=== PATIENT | male | born 1990 | race Caucasian/White ===

== ENCOUNTER 2017-10-14 15:25 | Outpatient (CLI) | payer OTHER | END 2017-10-24 | disposition home or self-care (01) | LOC: PCVCIMAG 15:25 | DX: R07.9 Chest pain, unspecified (principal); R06.00 Dyspnea, unspecified; R00.2 Palpitations | CPT/HCPCS: 93325; 93351 ==

== ENCOUNTER 2020-08-01 19:45 | Emergency (ER) | payer OTHER ==
[~2020-08-01] VITALS: Ht 182.9 cm; Wt 63.6 kg
--- NOTE | 2020-08-01 20:03 | EKG ---
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
[2020-08-01 20:09] LABS: BASO % 0 % (0-3); EOS % 0 % (0-3); HEMATOCRIT 45.9 % (39.0-53.0); HEMOGLOBIN 15.3 g/dL (13.0-17.5); LYMPH # 1.8 x10^3/uL (1.0-4.8); LYMPH % 29 % (24-48); MEAN CORPUSCULAR HEMOGLOBIN 29 pg (25-35); MEAN CORPUSCULAR HGB CONC 33 g/dL (31-37); MEAN CORPUSCULAR VOLUME 86 fL (79-100); MONO # 0.6 x10^3/uL (0.0-1.1); MONO % 9 % (0-9); NEUT # 3.9 x10^3/uL (1.8-7.7); NEUT % 62 % (31-73); PLATELET COUNT 80 x10^3/uL (140-400); RED BLOOD COUNT 5.32 x10^6/uL (4.30-5.70); WHITE BLOOD COUNT 6.3 x10^3/uL (4.0-11.0)
--- NOTE | 2020-08-01 20:13 | PHYS DOC ---
General Adult HPI: HPI: 30-year-old male with history of hypertension, anxiety, bradycardia, thrombocytopenia, who presents for evaluation of altered mentation and headache. The patient reports gradual onset global headache that began earlier this morning, around 9 AM. He took his first dose of lisinopril this morning as well, newly started for hypertension. Per EMS, the patient was noted to have left upper extremity weakness. The patient also reports feeling generally unwell, and has difficulty thinking. He took one Xanax prior to arrival thinking his presentation may have been anxiety induced. Review of Systems: Review of Systems: Gen: No fever, chills. Eyes: No blurred vision, diplopia. ENT: No nasal congestion, sore throat. CV: No CP, palpitations. Resp. No SOB, cough. GI: No abd pain, N/V. : No dysuria, hematuria. Neuro: Reports SUE, dizziness, weakness. MSK: No myalgia, arthralgia, back pain. Skin: No acute rash or lesion. Remainder of systems reviewed and negative unless otherwise specified. Heart Score: Risk Factors: Risk Factors: DM, Current or recent (<one month) smoker, HTN, HLP, family history of CAD, obesity. Risk Scores: Score 0 - 3: 2.5% MACE over next 6 weeks - Discharge Home Score 4 - 6: 20.3% MACE over next 6 weeks - Admit for Clinical Observation Score 7 - 10: 72.7% MACE over next 6 weeks - Early Invasive Strategies Physical Exam: PE: Gen: NAD. Well nourished. Head: NC/AT. Eyes: No scleral icterus. No conjunctival injection. PERRL. Mild bilateral proptosis. ENT: MMM. Posterior OP clear. Neck: Supple. NT. No meningismus. CV: RRR. Peripheral pulses intact. Resp: CTAB. Abd: Soft. NT. ND. MSK: No peripheral cyanosis. No edema. Neuro: A&Ox3. Sensation grossly intact throughout. Mild left upper extremity drift. No gross dysmetria. No aphasia or dysarthria. No visual field cut. No facial asymmetry. NIHSS of 1. Skin. Warm. Dry. Psych: Anxious appearing. Current Patient Data: Labs: Laboratory Tests Test 08/01/20 20:00 White Blood Count 6.3 x10^3/uL (4.0-11.0) Red Blood Count 5.32 x10^6/uL (4.30-5.70) Hemoglobin 15.3 g/dL (13.0-17.5) Hematocrit 45.9 % (39.0-53.0) Mean Corpuscular Volume 86 fL (79-100) Mean Corpuscular Hemoglobin 29 pg (25-35) Mean Corpuscular Hemoglobin Concent 33 g/dL (31-37) Red Cell Distribution Width 13.0 % (11.5-14.5) Platelet Count 80 x10^3/uL (140-400) Neutrophils (%) (Auto) 62 % (31-73) Lymphocytes (%) (Auto) 29 % (24-48) Monocytes (%) (Auto) 9 % (0-9) Eosinophils (%) (Auto) 0 % (0-3) Basophils (%) (Auto) 0 % (0-3) Neutrophils # (Auto) 3.9 x10^3/uL (1.8-7.7) Lymphocytes # (Auto) 1.8 x10^3/uL (1.0-4.8) Monocytes # (Auto) 0.6 x10^3/uL (0.0-1.1) Eosinophils # (Auto) 0.0 x10^3/uL (0.0-0.7) Basophils # (Auto) 0.0 x10^3/uL (0.0-0.2) Platelet Estimate Decreased (ADEQUATE) Large Platelets Present Prothrombin Time 13.9 SEC (11.7-14.0) Prothromb Time International Ratio 1.1 (0.8-1.1) Activated Partial Thromboplast Time 27 SEC (24-38) Sodium Level 139 mmol/L (136-145) Chloride Level 102 mmol/L (98-107) Carbon Dioxide Level 26 mmol/L (21-32) Anion Gap 11 (6-14) Blood Urea Nitrogen 14 mg/dL (8-26) Estimated GFR (Cockcroft-Gault) 87.2 BUN/Creatinine Ratio 14 (6-20) Glucose Level 108 mg/dL (70-99) Calcium Level 8.9 mg/dL (8.5-10.1) Total Bilirubin 0.5 mg/dL (0.2-1.0) Aspartate Amino Transf (AST/SGOT) 16 U/L (15-37) Alkaline Phosphatase 53 U/L (46-116) Troponin I Quantitative < 0.017 ng/mL (0.000-0.055) Total Protein 7.8 g/dL (6.4-8.2) Albumin 4.1 g/dL (3.4-5.0) Albumin/Globulin Ratio 1.1 (1.0-1.7) Ethyl Alcohol Level < 10 mg/dL (0-10) EKG: EKG: [] Radiology/Procedures: Radiology/Procedures: Exam: CT head. CTA head and neck INDICATION: Headache, left upper extremity drift TECHNIQUE: Sequential axial images through the head were obtained without the administration of IV contrast. Sequential axial images through the head and neck were obtained following the administration of 75 mL of Isovue-370. 3-D reformatted images were reconstructed from the axial data and reviewed. Comparisons: None FINDINGS: Head: No focal parenchymal lesion or hemorrhage is identified. There is no midline shift or sulcal effacement. No acute vascular territory infarction is identified. Rivas-white distinction is preserved. The ventricular system is within normal limits without compression hydrocephalus. The basal cisterns are well maintained. The visualized portions of the paranasal sinuses and mastoid air cells are well- pneumatized. No acute fractures. CTA NECK: Right common carotid artery is patent without evidence of stenosis, occlusion or aneurysm. Cervical segment of the right internal carotid artery is patent without evidence of stenosis, occlusion or aneurysm. Left common carotid artery is patent without evidence of stenosis, occlusion or aneurysm. Cervical segment of the left internal carotid artery is patent without evidence of stenosis, occlusion or aneurysm. Right vertebral artery is patent basal confluence without evidence of stenosis, occlusion or aneurysm. Left vertebral artery is patent to basilar confluence without evidence of stenosis, occlusion or aneurysm. Visualized paraspinal soft tissues are unremarkable. CTA HEAD: Intracranial segments of the right internal carotid artery are patent without evidence of stenosis, occlusion or aneurysm. Right MCA is patent. Right NINA is patent. Intracranial segments of the left internal carotid artery are patent without evidence of stenosis, occlusion or aneurysm. Left MCA is patent. Left NINA is patent. Basilar artery is patent without evidence of stenosis, occlusion or aneurysm. 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 IMPRESSION: 1. No acute intracranial abnormality. 2. Patent intracranial and cervical arterial vasculature without evidence of stenosis, occlusion or aneurysm. Course & Med Decision Making: Course & Med Decision Making Pertinent Labs and Imaging studies reviewed. (See chart for details) In summary, 30-year-old male who presents for evaluation of headache, left upper extremity drift and elevated blood pressure. Hemodynamically stable. Physical exam is notable for subtle left upper extremity drift without significant fine motor weakness. No other sequelae of stroke noted. No meningeal signs. Lab work is largely unremarkable. Underwent CTA head and neck, negative for large vessel occlusion or significant cerebrovascular disease. Patient presented well outside the TPA window. Received migraine cocktail with improvement in SUE and left arm weakness. I do suspect complicated migraine in this young adult patient without significant risk factors for stroke. After a shared decision making discussion re: admission vs. discharge, patient has opted for discharge which I feel would be a reasonable disposition. Findings also discussed with spouse at bedside. Will DC with Rx fiorcet. Outpatient neurology F/U. Return precautions given. Daily Disclaimer: Daily Disclaimer: This electronic medical record was generated, in whole or in part, using a voice recognition dictation system. Departure Departure Impression: Primary Impression: Complicated migraine Disposition: 01 DC HOME SELF CARE/HOMELESS Condition: STABLE Referrals: ALDEN STEPHEN DO (PCP) DEREK GARCIA MD Patient Instructions: Migraine Headache, [id number] Additional Instructions: Please follow up with Dr. Hernandez of neurology. You may also follow up with the neurologist of your choice. Return to the ED if you develop new or worsening symptoms. Scripts Butalb/Acetaminophen/Caffeine ([id number] [id number]) 1 Each Tablet 1 EACH PO Q8HRS PRN for HEADACHE, #15 TAB Prov: NOVA ROCHA DO 08/01/20 NOVA ROCHA DO Aug 01, 2020 20:13
[2020-08-01 20:19] LABS: PROTHROMBIN TIME PATIENT 13.9 SEC (11.7-14.0)
[2020-08-01] MEDS ORDERED: LISI20TA18 PO (20:22)
[2020-08-01 20:29] LABS: CALCIUM 8.9 mg/dL (8.5-10.1); GFR 87.2; POTASSIUM 3.4 mmol/L (3.5-5.1)
[2020-08-01] MEDS ORDERED: diphenhydrAMINE 50 MG/ML VIAL IVP ONE (20:30)
[2020-08-01] MEDS ORDERED: CONTRAST GIVEN. MC PRN (20:30)
[2020-08-01] MEDS ORDERED: IV NORMAL SALINE 1000ML BAG 1,000 ML IV ONE (20:30)
[2020-08-01] MEDS ORDERED: IOHEXOL 350 MG/ML 100 ML VIAL. IV ONE (20:30)
[2020-08-01] MEDS ORDERED: METOCLOPRAMIDE HCL 10 MG/2 ML VIAL. IVP ONE (20:30)
[2020-08-01 20:34] LABS: ALBUMIN 4.1 g/dL (3.4-5.0); ALBUMIN/GLOBULIN RATIO 1.1 (1.0-1.7); MAGNESIUM 2.2 mg/dL (1.8-2.4); TOTAL BILIRUBIN 0.5 mg/dL (0.2-1.0); TOTAL PROTEIN 7.8 g/dL (6.4-8.2)
[2020-08-01 20:35] LABS: PLT ESTIMATE DECREASED (ADEQUATE)
--- NOTE | 2020-08-01 21:20 | RAD ---
Exam: CT head. CTA head and neck INDICATION: Headache, left upper extremity drift TECHNIQUE: Sequential axial images through the head were obtained without the administration of IV co ntrast. Sequential axial images through the head and neck were obtained following the administration of 75 mL of Isovue-370. 3-D reformatted images were reconstructed from the axial data and reviewed. Comparisons: None FINDINGS: Head: No focal parenchymal lesion or hemorrhage is identified. There is no midline shift or sulcal effaceme nt. No acute vascular territory infarction is identified. Rivas-white distinction is preserved. The ventricular system is within normal limits without compression hydrocephalus. The basal cisterns are well maintained. The visualized portions of the paranasal sinuses and mastoid air cells are well-pneumatized. No acute fractures. CTA NECK: Right common carotid artery is patent without evidence of stenosis, occlusion or aneurysm. Cervical s egment of the right internal carotid artery is patent without evidence of stenosis, occlusion or aneu rysm. Left common carotid artery is patent without evidence of stenosis, occlusion or aneurysm. Cervical se gment of the left internal carotid artery is patent without evidence of stenosis, occlusion or aneury sm. Right vertebral artery is patent basal confluence without evidence of stenosis, occlusion or aneurysm . Left vertebral artery is patent to basilar confluence without evidence of stenosis, occlusion or aneu rysm. Visualized paraspinal soft tissues are unremarkable. CTA HEAD: Intracranial segments of the right internal carotid artery are patent without evidence of stenosis, o cclusion or aneurysm. Right MCA is patent. Right NINA is patent. Intracranial segments of the left internal carotid artery are patent without evidence of stenosis, oc clusion or aneurysm. Left MCA is patent. Left NINA is patent. Basilar artery is patent without evidence of stenosis, occlusion or aneurysm. 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 IMPRESSION: 1. No acute intracranial abnormality. 2. Patent intracranial and cervical arterial vasculature without evidence of stenosis, occlusion or aneurysm. Exposure: One or more of the following in the visualized dose reduction techniques were utilized for this examination: 1. Automated exposure control 2. Adjustment of the MA and/or KV according to patient size Use of iterative of reconstructive technique Electronically signed by: Liz Lew MD (08/01/2020 9:18 PM) [facility]
[2020-08-01 21:52] VITALS: BP 125/64
[2020-08-01 21:52] LABS: BARBITURATES NEG (NEG); BENZODIAZEPINES NEG (NEG); CANNABINOIDS POS (NEG); COCAINE NEG (NEG); METHADONE NEG (NEG); OPIATES NEG (NEG); PHENCYCLIDINE NEG (NEG)
[2020-08-01 21:55] LABS: AMPHETAMINE/METHAMPHETAMINE NEG (NEG)
[2020-08-01] MEDS ORDERED: BUTA1TAB23 PO (22:00)
== END 2020-08-01 22:17 | disposition home or self-care (01) ==
LOC: ER 19:45
DX: G43.109 Migraine with aura, not intractable, without status migrainosus (principal); R41.82 Altered mental status, unspecified; R53.1 Weakness; I10 Essential (primary) hypertension; F41.9 Anxiety disorder, unspecified
CPT/HCPCS: 36415; 70450; 70496; 70498; 80053; 80307; 83735; 84443; 84484; 85025; 85610; 85730; 93005; 96361; 96374; 96375; 99285; G0480; J1200; J2765; J7030; Q9967